=== PATIENT | female | born 1965 | race Caucasian/White ===

== ENCOUNTER 2018-07-28 12:49 | Emergency (ER) | payer MEDICAID ==
[2018-07-28] MEDS ORDERED: ONDANSETRON DISINTEGRATING 4 MG TAB PO ONE (13:27)
[2018-07-28] MEDS ORDERED: ONDANSETRON DISINTEGRATING 4 MG TAB ONE (13:27)
[2018-07-28] MEDS ORDERED: METOCLOPRAMIDE 10 MG/2 ML VIAL IVP ONE (14:11)
[2018-07-28] MEDS ORDERED: NS 1,000 ML IV ONE (14:11)
--- NOTE | 2018-07-28 14:15 | EDPHY ---
H & P Stated Complaint: N/V L upper abd pain x3 days, hx pancreatitis - Personal History LMP (Females 10-55): 22-28 Days Ago Current Tetanus Diphtheria and Acellular Pertussis (TDAP): No - Medical/Surgical History Hx Asthma: No Hx Chronic Respiratory Disease: No Hx Diabetes: No Hx Cardiac Disease: No Hx Renal Disease: No Hx Cirrhosis: No Hx Alcoholism: No Hx HIV/AIDS: No Hx Splenectomy or Spleen Trauma: No Other PMH: pancreatitis, mood disorder - Social History Smoking Status: Light smoker Time Seen by Provider: 07/28/18 14:03 HPI/ROS: CHIEF COMPLAINT: Epigastric pain nausea vomiting HISTORY OF PRESENT ILLNESS: 52-year-old female recently moved to this area from [place], [place], history of pancreatitis 1 year ago secondary to alcohol abuse and triglyceridemia, started drinking alcohol few days ago, is complaining of epigastric pain, nausea, vomiting for the past 3 days. No hematemesis. No melena hematochezia. No flu-like symptoms. No back or flank pain. No urinary abnormality. PRIMARY CARE PROVIDER: None locally REVIEW OF SYSTEMS: 10 systems reviewed and negative with the exception of the elements mentioned in the history of present illness PAST MEDICAL & SURGICAL HISTORY: C diff colitis history. Cutaneous MRSA history. Alcohol-induced pancreatitis. SOCIAL HISTORY: Positive for recent alcohol use PHYSICAL EXAM (Prior to examination, patient consented to physical exam, hands were washed and my usual and customary physical exam procedures followed) 1) GENERAL: Well-developed, well-nourished, alert and oriented. Appears to be in no acute distress. 2) HEAD: Normocephalic, atraumatic 3) HEENT: Pupils equal, round, reactive to light bilaterally. Sclera anicteric. Nasopharynx, oropharynx, clear, no lesions. Dry Mucous membranes. 4) NECK: Full range of motion, no meningeal signs. 5) LUNGS: Clear auscultation bilaterally, no wheezes, no rhonchi, no retractions. 6) HEART: Regular rate and rhythm, no murmur, no heave, no gallop. 7) ABDOMEN: No guarding, tender to palpation epigastrium negative McBurney's, negative Thomas's, negative Rovsing's, negative peritoneal sign, 8) MUSCULOSKELETAL: Moving all extremities, no focal areas of tenderness, no obvious trauma. No peripheral edema or discoloration. 9) BACK: No CVA tenderness, no midline vertebral tenderness, no fluctuance, no step-off, no obvious trauma, no visual or palpable abnormality. 10) SKIN: No rash, no petechiae. 11) Psychiatric: Patient is oriented X 3, there is no agitation. DIFFERENTIAL DIAGNOSIS: In no particular order, including but not limited to biliary colic, cholecystitis, peptic ulcer disease, pancreatitis, and gastroenteritis. This is a partial list of diagnoses considered. These considerations are based on history, physical exam, past history and reassessment. (Logan Vázquez) Constitutional: Initial Vital Signs Temperature (C) 36.7 C 07/28/18 12:51 Heart Rate 94 07/28/18 12:51 Respiratory Rate 16 07/28/18 12:51 Blood Pressure 141/114 H 07/28/18 12:51 O2 Sat (%) 96 07/28/18 12:51 O2 Delivery Mode Room Air Allergies/Adverse Reactions: No Known Allergies Allergy (Unverified 07/28/18 12:53) Home Medications: Medication Instructions Recorded Lamictal 07/28/18 Ondansetron Odt [Zofran Odt] 4 mg PO Q4PRN PRN #10 tab 07/28/18 Pantoprazole Sodium [Protonix 40mg 40 mg PO DAILY #30 tab 07/28/18 (RX)] SUBOXONE 8mg/2mg 07/28/18 Medical Decision Making ED Course/Re-evaluation: 2:15 p.m.: Will obtain diagnostic studies. Will administer IV fluids. I saw this patient independently based on established practice protocols. Care of patient under supervision of secondary supervising physician Dr Bean . 3:20 p.m.: Re-evaluation, she is feeling improvement. Discussed her laboratory results including normal lipase. Re-examined her abdomen which is soft no guarding no rebound. Think that acute surgical abdominal pathology less than likely, doubt acute pancreatitis, doubt acute cholecystitis. I did recommend she stop drinking alcohol. We discussed possibility of peptic ulcer disease. I have recommend she establish primary care. I have started her on proton pump inhibitor. This time I do not think that laboratory studies are indicated. She feels comfortable being discharged. She notes prior history of C diff colitis 18 months ago which was treated and has been asymptomatic since. She provided a stool sample in the ER however in absence of diarrhea I do not think that testing for C diff or other organism is definitively indicated at this time. My usual and customary discharge precautions and instructions provided (Logan Vázquez) I did not see this patient while she was in the emergency department. However her care was discussed with the PA while the patient was in the department. I agree with treatment plan and management (Asael Bean) - Data Points Laboratory Results: Laboratory Results 07/28/18 14:20 07/28/18 14:20 07/28/18 07/28/18 07/28/18 14:20 14:20 14:20 WBC 6.95 10^3/uL 10^3/uL (3.80-9.50) RBC 5.08 10^6/uL 10^6/uL (4.18-5.33) Hgb 14.9 g/dL g/dL (12.6-16.3) Hct 43.3 % % (38.0-47.0) MCV 85.2 fL fL (81.5-99.8) MCH 29.3 pg pg (27.9-34.1) MCHC 34.4 g/dL g/dL (32.4-36.7) RDW 13.5 % % (11.5-15.2) Plt Count 149 10^3/uL L 10^3/uL (150-400) MPV 10.7 fL fL (8.7-11.7) Neut % (Auto) 67.6 % % (39.3-74.2) Lymph % (Auto) 25.2 % % (15.0-45.0) [place] % (Auto) 5.5 % % (4.5-13.0) Eos % (Auto) 0.9 % % (0.6-7.6) Baso % (Auto) 0.7 % % (0.3-1.7) Nucleat RBC Rel Count 0.0 % % (0.0-0.2) Absolute Neuts (auto) 4.70 10^3/uL 10^3/uL (1.70-6.50) Absolute Lymphs (auto) 1.75 10^3/uL 10^3/uL (1.00-3.00) Absolute Monos (auto) 0.38 10^3/uL 10^3/uL (0.30-0.80) Absolute Eos (auto) 0.06 10^3/uL 10^3/uL (0.03-0.40) Absolute Basos (auto) 0.05 10^3/uL 10^3/uL (0.02-0.10) Absolute Nucleated RBC 0.00 10^3/uL 10^3/uL (0-0.01) Immature Gran % 0.1 % % (0.0-1.1) Immature Gran # 0.01 10^3/uL 10^3/uL (0.00-0.10) Sodium 137 mEq/L mEq/L (135-145) Potassium 4.1 mEq/L mEq/L (3.3-5.0) Chloride 104 mEq/L mEq/L (97-110) Carbon Dioxide 20 mEq/l L mEq/l (22-31) Anion Gap 13 mEq/L mEq/L (8-16) BUN 18 mg/dL mg/dL (7-23) Creatinine 0.5 mg/dL L mg/dL (0.6-1.0) Estimated GFR > 60 Glucose 108 mg/dL H mg/dL (70-100) Calcium 9.6 mg/dL mg/dL (8.5-10.4) Total Bilirubin 0.7 mg/dL mg/dL (0.1-1.4) Conjugated Bilirubin 0.2 mg/dL mg/dL (0.0-0.5) Unconjugated Bilirubin 0.5 mg/dL mg/dL (0.0-1.1) AST 29 IU/L IU/L (14-46) ALT 21 IU/L IU/L (9-52) Alkaline Phosphatase 90 IU/L IU/L (38-126) Total Protein 7.9 g/dL g/dL (6.3-8.2) Albumin 4.2 g/dL g/dL (3.5-5.0) Lipase 64 IU/L IU/L (23-300) Beta HCG, Qual NEGATIVE Medications Given: Discontinued Medications Al Hydroxide/Mg Hydroxide (Maalox Susp) 30 ml PO ONCE ONE Stop: 07/28/18 14:59 Last Admin: 07/28/18 15:08 Dose: 30 ml Hyoscyamine Sulfate (Levsin, Hyomax-Sl) 0.25 mg PO ONCE ONE Stop: 07/28/18 14:59 Last Admin: 07/28/18 15:08 Dose: 0.25 mg Sodium Chloride (Ns) 1,000 mls @ 0 mls/hr IV ONCE ONE PRN Reason: Wide Open Stop: 07/28/18 14:12 Last Admin: 07/28/18 14:22 Dose: 1,000 mls Lidocaine (Lidocaine 2% Viscous) 15 ml PO ONCE ONE Stop: 07/28/18 14:59 Last Admin: 07/28/18 15:08 Dose: 15 ml Metoclopramide HCl (Reglan Injection) 10 mg IVP EDNOW ONE Stop: 07/28/18 14:12 Last Admin: 07/28/18 14:22 Dose: 10 mg Ondansetron HCl (Zofran Odt) 4 mg PO EDNOW ONE Stop: 07/28/18 13:28 Last Admin: 07/28/18 13:28 Dose: 4 mg Departure - Departure Disposition: Home, Routine, Self-Care Clinical Impression: Nausea & vomiting Qualifiers: Vomiting type: unspecified Vomiting Intractability: non-intractable Qualified Code(s): R11.2 - Nausea with vomiting, unspecified Condition: Good Instructions: Acute Nausea and Vomiting (ED) Additional Instructions: Seek immediate medical attention if you develop new or worsening symptoms, if you develop fevers, chills, inability to tolerate oral intake or any other symptoms that concerns you. Please do not drink alcohol Referrals: [facility],. [Clinic] - 2-3 days, call for appt. Prescriptions: Ondansetron Odt [Zofran Odt] 4 mg PO Q4PRN PRN #10 tab PRN Reason: Nausea Pantoprazole Sodium [Protonix 40mg (RX)] 40 mg PO DAILY #30 tab
[2018-07-28 14:27] LABS: PLATELET COUNT 149 10^3/uL (150-400)
[2018-07-28] MEDS ORDERED: MAG HYDROX/AL HYDROX/SIMETH 30 ML UDCUP PO ONE (14:58)
[2018-07-28] MEDS ORDERED: LIDOCAINE 2% VISCOUS 15 ML UDCUP PO ONE (14:58)
[2018-07-28] MEDS ORDERED: HYOSCYAMINE SULFATE 0.125 MG TAB PO ONE (14:58)
[2018-07-28 15:37] VITALS: BP 132/78
== END 2018-07-28 15:36 | disposition home or self-care (01) ==
DX: R10.12 Left upper quadrant pain (principal); R11.2 Nausea with vomiting, unspecified; E86.9 Volume depletion, unspecified; Z87.19 Personal history of other diseases of the digestive system; F10.10 Alcohol abuse, uncomplicated
CPT/HCPCS: 96374; J2765

== ENCOUNTER 2018-10-19 10:50 | Emergency (ER) | payer MEDICAID ==
--- NOTE | 2018-10-19 11:26 | EDPHY ---
H & P Stated Complaint: detox, abd pain Time Seen by Provider: 10/19/18 11:26 HPI/ROS: CHIEF COMPLAINT: Abdominal pain, vomiting HISTORY OF PRESENT ILLNESS: The patient presents the ED with complaints of increasing abdominal pain and vomiting. The patient has been drinking alcohol pretty heavily over the past week. She does have a history of alcoholic pancreatitis. She reports she has been having chronic diarrhea since stopping narcotic medications 10 weeks ago. The patient reports she recently started taking Wellbutrin. She recently relocated to [place]. She has yet to establish primary care. The patient does complain of moderate to severe mid abdominal pain. She denies any additional acute complaints. REVIEW OF SYSTEMS: A comprehensive 10 point review of systems is otherwise negative aside from elements mentioned in the history of present illness. Source: Patient Exam Limitations: No limitations - Personal History Current Tetanus/Diphtheria Vaccine: Unsure Current Tetanus Diphtheria and Acellular Pertussis (TDAP): Unsure - Medical/Surgical History Hx Asthma: No Hx Chronic Respiratory Disease: No Hx Diabetes: No Hx Cardiac Disease: No Hx Renal Disease: No Hx Cirrhosis: No Hx Alcoholism: No Hx HIV/AIDS: No Hx Splenectomy or Spleen Trauma: No Other PMH: pancreatitis, mood disorder, opiate dependency - Social History Smoking Status: Current every day smoker - Physical Exam Exam: General Appearance: Alert, no distress, mild discomfort Eyes: Pupils equal and round no pallor or injection ENT, Mouth: Mucous membranes moist Respiratory: There are no retractions, lungs are clear to auscultation Cardiovascular: Slight tachycardia Gastrointestinal: Epigastric tenderness to palpation Neurological: 5/5 strength all 4 extremities Skin: Warm and dry, no rashes Musculoskeletal: Neck is supple nontender Extremities: symmetrical, full range of motion, no edema or asymmetric calf pain or swelling Psychiatric: Patient is oriented X 3, there is no agitation Constitutional: Initial Vital Signs Temperature (C) 36.8 C 10/19/18 10:54 Heart Rate 107 H 10/19/18 10:54 Respiratory Rate 16 10/19/18 10:54 Blood Pressure 142/129 H 10/19/18 10:54 O2 Sat (%) 97 10/19/18 10:54 O2 Delivery Mode Room Air Allergies/Adverse Reactions: No Known Allergies Allergy (Unverified 10/19/18 10:54) Medical Decision Making ED Course/Re-evaluation: Patient presents to the ED with vomiting in the setting of mild alcohol withdrawal. The patient is concerned about the possibility of recurrent pancreatitis. The patient's physical examination demonstrated only minimal epigastric tenderness to palpation. The patient had an IV established. She received a mg of Ativan and Zofran. Laboratory studies demonstrate no evidence of pancreatitis. I re-evaluated the patient. She has benign abdominal examination. The patient was [facility] for [facility] with alcohol withdrawal however she prefers to go home. The patient was given follow up with primary care regarding her chronic medical issues. She is discharged home with customary aftercare instructions and return precautions. Differential Diagnosis: Differential diagnosis considered includes vomiting, pancreatitis, dehydration, metabolic derangement, alcohol dependence, alcohol withdrawal - Data Points Laboratory Results: Laboratory Results 10/19/18 11:22 10/19/18 11:10/19/18 10/19/18 11:22 11:22 WBC 5.62 10^3/uL 10^3/uL (3.80-9.50) RBC 4.81 10^6/uL 10^6/uL (4.18-5.33) Hgb 15.0 g/dL g/dL (12.6-16.3) Hct 42.1 % % (38.0-47.0) MCV 87.5 fL fL (81.5-99.8) MCH 31.2 pg pg (27.9-34.1) MCHC 35.6 g/dL g/dL (32.4-36.7) RDW 14.3 % % (11.5-15.2) Plt Count 171 10^3/uL 10^3/uL (150-400) MPV 10.5 fL fL (8.7-11.7) Neut % (Auto) 53.2 % % (39.3-74.2) Lymph % (Auto) 39.7 % % (15.0-45.0) [place] % (Auto) 5.3 % % (4.5-13.0) Eos % (Auto) 0.5 % L % (0.6-7.6) Baso % (Auto) 1.1 % % (0.3-1.7) Nucleat RBC Rel Count 0.0 % % (0.0-0.2) Absolute Neuts (auto) 2.99 10^3/uL 10^3/uL (1.70-6.50) Absolute Lymphs (auto) 2.23 10^3/uL 10^3/uL (1.00-3.00) Absolute Monos (auto) 0.30 10^3/uL 10^3/uL (0.30-0.80) Absolute Eos (auto) 0.03 10^3/uL 10^3/uL (0.03-0.40) Absolute Basos (auto) 0.06 10^3/uL 10^3/uL (0.02-0.10) Absolute Nucleated RBC 0.00 10^3/uL 10^3/uL (0-0.01) Immature Gran % 0.2 % % (0.0-1.1) Immature Gran # 0.01 10^3/uL 10^3/uL (0.00-0.10) Sodium 139 mEq/L mEq/L (135-145) Potassium 5.1 mEq/L mEq/L (3.5-5.2) Chloride 108 mEq/L mEq/L (97-110) Carbon Dioxide 14 mEq/l L mEq/l (22-31) Anion Gap 17 mEq/L H mEq/L (6-14) BUN 15 mg/dL mg/dL (7-23) Creatinine 0.6 mg/dL mg/dL (0.6-1.0) Estimated GFR > 60 Glucose 98 mg/dL mg/dL (70-100) Calcium 8.4 mg/dL L mg/dL (8.5-10.4) Total Bilirubin 1.6 mg/dL H mg/dL (0.1-1.4) Conjugated Bilirubin 0.9 mg/dL H mg/dL (0.0-0.5) Unconjugated Bilirubin 0.7 mg/dL mg/dL (0.0-1.1) Icterus Index 6 AST 53 IU/L H IU/L (14-46) ALT < 6 IU/L L IU/L (9-52) Alkaline Phosphatase 80 IU/L IU/L (38-126) Total Protein 8.0 g/dL g/dL (6.3-8.2) Albumin 3.9 g/dL g/dL (3.5-5.0) Lipase 47 IU/L IU/L (23-300) Specimen Hemolysis 270 Medications Given: Discontinued Medications Sodium Chloride (Ns) 1,000 mls @ 0 mls/hr IV EDNOW ONE; Wide Open PRN Reason: Protocol Stop: 10/19/18 11:28 Last Admin: 10/19/18 11:31 Dose: 1,000 mls Lorazepam (Ativan Injection) 1 mg IVP EDNOW ONE Stop: 10/19/18 11:30 Last Admin: 10/19/18 11:35 Dose: 1 mg Ondansetron HCl (Zofran) 4 mg IVP EDNOW ONE Stop: 10/19/18 11:29 Last Admin: 10/19/18 11:35 Dose: 4 mg Departure - Departure Disposition: Home, Routine, Self-Care Clinical Impression: Alcohol withdrawal Condition: Good Instructions: Alcohol Withdrawal (ED) Additional Instructions: 1. You have been given the number for the [facility] if you desire assistance with your alcohol and narcotic dependence. 2. [facility]. 3. Please return to the ED for severe abdominal pain, vomiting or other concerns. Referrals: [facility],. [Clinic] - As per Instructions
[2018-10-19] MEDS: NS 1,000 ML IV ONE (11:31)
[2018-10-19 11:34] LABS: PLATELET COUNT 171 10^3/uL (150-400)
[2018-10-19] MEDS: LORazepam 2 MG/ML INJ IVP ONE (11:35)
[2018-10-19] MEDS: ONDANSETRON 4 MG/2 ML VIAL IVP ONE (11:35)
[2018-10-19 14:24] VITALS: BP 156/96
== END 2018-10-19 14:23 | disposition home or self-care (01) ==
DX: F10.230 Alcohol dependence with withdrawal, uncomplicated (principal); E86.9 Volume depletion, unspecified; F11.20 Opioid dependence, uncomplicated; F17.200 Nicotine dependence, unspecified, uncomplicated; Z87.19 Personal history of other diseases of the digestive system
CPT/HCPCS: 96374; J2060; J2405

== ENCOUNTER 2018-11-28 11:57 | Emergency (ER) | payer MEDICAID ==
[2018-11-28] MEDS ORDERED: NS 1,000 ML IV ONE ×3 (12:45→14:32)
[2018-11-28] MEDS ORDERED: LORazepam 2 MG/ML INJ IVP ONE (12:46)
--- NOTE | 2018-11-28 12:46 | EDPHY ---
H & P Time Seen by Provider: 11/28/18 12:34 HPI/ROS: CHIEF COMPLAINT: abdominal pain HISTORY OF PRESENT ILLNESS: Patient has a history previously of multiple episodes of pancreatitis, last was hospitalized 2 years ago. She did have laparoscopy for diagnosis of a pseudocyst at 1 point. She has been drinking lasts and has not been hospitalized for 2 years. She said chronic diarrhea after quitting opioids 4 months ago. Over the last 5 days she has had no diarrhea, worsening bloating and abdominal discomfort, right-sided pain for the last 1 day. No nausea vomiting fevers or chills. Not better worse with anything. Has decreased appetite associated and decreased oral intake. REVIEW OF SYSTEMS: Eye: no change in vision ENT: no sore throat Cardiac: no chest pain or syncope Pulmonary: no cough or SOB Abdomen: HPI Musculoskeletal: no back pain Skin: no rash Neuro: no headache Constitutional: no fever : no urinary symptoms A comprehensive 10 point review of systems is otherwise negative aside from elements mentioned in the history of present illness. PAST MEDICAL HISTORY: Includes pancreatitis, mood disorder Social history: Alcohol last night, also using Kratom General Appearance: Alert and conversant, cooperative. Eyes: No scleral icterus. ENT, Mouth: Dry mucous membranes Respiratory: Normal respiratory effort, breath sounds equal, lungs are clear to auscultation. Cardiovascular: Regular rate and rhythm. Gastrointestinal: Right-sided abdominal tenderness, negative Thomas sign, no rebound or guarding. Neurological: Alert, face symmetric, normal motor and sensory in extremities. Skin: Warm and dry, no rashes. Musculoskeletal: No peripheral edema. Psychiatric: Not agitated. Emergency Department course/MDM: Patient specifically does not want opioids. Discussed and consented IV hydration, CT scan abdomen and pelvis, lorazepam 0.5 mg IV, Toradol if creatinine is normal. 1420: CT scan per [facility] shows duodenitis, normal appendix, no bowel obstruction, otherwise negative. 1430: discussed with patient results, she will take her home Zantac. Diagnosis of duodenitis discussed. She states she is comfortable being discharged with treatment with H2 portillo and outpatient referral. Smoking Status: Former smoker Constitutional: Initial Vital Signs Temperature (C) 36.5 C 11/28/18 12:07 Heart Rate 87 11/28/18 12:07 Respiratory Rate 16 11/28/18 12:07 Blood Pressure 153/104 H 11/28/18 12:07 O2 Sat (%) 98 11/28/18 12:07 O2 Delivery Mode Room Air Allergies/Adverse Reactions: No Known Allergies Allergy (Unverified 11/28/18 12:07) Home Medications: Medication Instructions Recorded Bupropion HBr 11/28/18 Clonidine 11/28/18 Medical Decision Making - Diagnostics Imaging Results: Imaging Impressions Abdomen CT 11/28/18 13:34 Impression: 1. 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 2. Previous distal pancreatectomy without acute pancreatitis. 3. Thickening of the duodenum suggesting duodenitis. Consider follow up upper endoscopy. 4. No appendicitis, bowel obstruction, or pneumoperitoneum. 5. Degenerative lumbar spine. Findings and recommendations discussed with Emergency Department physician, Zachary Cabello, at 1410 hours, 11/28/2018. Final report concurs with initial preliminary interpretation. Imaging: Discussed imaging studies w/ shovel logger Radiologist Differential Diagnosis: Differential considered including but not limited to bowel obstruction, appendicitis, cholecystitis, pancreatitis, volvulus or perforation - Data Points Laboratory Results: Laboratory Results 11/28/18 12:30 11/28/18 12:30 11/28/18 11/28/18 11/28/18 13:00 12:30 12:30 WBC RBC Hgb Hct MCV MCH MCHC RDW Plt Count MPV Neut % (Auto) Lymph % (Auto) [place] % (Auto) Eos % (Auto) Baso % (Auto) Nucleat RBC Rel Count Absolute Neuts (auto) Absolute Lymphs (auto) Absolute Monos (auto) Absolute Eos (auto) Absolute Basos (auto) Absolute Nucleated RBC Immature Gran % Immature Gran # Sodium 132 mEq/L L mEq/L (135-145) Potassium 4.1 mEq/L mEq/L (3.5-5.2) Chloride 106 mEq/L mEq/L (97-110) Carbon Dioxide 17 mEq/l L mEq/l (22-31) Anion Gap 9 mEq/L mEq/L (6-14) BUN 13 mg/dL mg/dL (7-23) Creatinine 0.5 mg/dL L mg/dL (0.6-1.0) Estimated GFR > 60 Glucose 91 mg/dL mg/dL (70-100) Calcium 8.3 mg/dL L mg/dL (8.5-10.4) Total Bilirubin 0.7 mg/dL mg/dL (0.1-1.4) Conjugated Bilirubin 0.5 mg/dL mg/dL (0.0-0.5) Unconjugated Bilirubin 0.2 mg/dL mg/dL (0.0-1.1) AST 29 IU/L IU/L (14-46) ALT 14 IU/L IU/L (9-52) Alkaline Phosphatase 84 IU/L IU/L (38-126) Total Protein 7.0 g/dL g/dL (6.3-8.2) Albumin 3.5 g/dL g/dL (3.5-5.0) Lipase 69 IU/L IU/L (23-300) Beta HCG, Qual NEGATIVE Urine Color YELLOW Urine Appearance CLEAR Urine pH 6.0 (5.0-7.5) Ur Specific [place] 1.013 (1.002-1.030) Urine Protein NEGATIVE (NEGATIVE) Urine Ketones TRACE H (NEGATIVE) Urine Blood NEGATIVE (NEGATIVE) Urine Nitrate NEGATIVE (NEGATIVE) Urine Bilirubin NEGATIVE (NEGATIVE) Urine Urobilinogen NEGATIVE EU EU (0.2-1.0) Ur Leukocyte Esterase NEGATIVE (NEGATIVE) Urine Glucose NEGATIVE (NEGATIVE) 11/28/18 12:30 WBC 5.90 10^3/uL 10^3/uL (3.80-9.50) RBC 4.03 10^6/uL L 10^6/uL (4.18-5.33) Hgb 13.3 g/dL g/dL (12.6-16.3) Hct 37.3 % L % (38.0-47.0) MCV 92.6 fL fL (81.5-99.8) MCH 33.0 pg pg (27.9-34.1) MCHC 35.7 g/dL g/dL (32.4-36.7) RDW 14.7 % % (11.5-15.2) Plt Count 142 10^3/uL L 10^3/uL (150-400) MPV 10.6 fL fL (8.7-11.7) Neut % (Auto) 58.2 % % (39.3-74.2) Lymph % (Auto) 32.4 % % (15.0-45.0) [place] % (Auto) 6.1 % % (4.5-13.0) Eos % (Auto) 1.9 % % (0.6-7.6) Baso % (Auto) 1.2 % % (0.3-1.7) Nucleat RBC Rel Count 0.0 % % (0.0-0.2) Absolute Neuts (auto) 3.44 10^3/uL 10^3/uL (1.70-6.50) Absolute Lymphs (auto) 1.91 10^3/uL 10^3/uL (1.00-3.00) Absolute Monos (auto) 0.36 10^3/uL 10^3/uL (0.30-0.80) Absolute Eos (auto) 0.11 10^3/uL 10^3/uL (0.03-0.40) Absolute Basos (auto) 0.07 10^3/uL 10^3/uL (0.02-0.10) Absolute Nucleated RBC 0.00 10^3/uL 10^3/uL (0-0.01) Immature Gran % 0.2 % % (0.0-1.1) Immature Gran # 0.01 10^3/uL 10^3/uL (0.00-0.10) Sodium Potassium Chloride Carbon Dioxide Anion Gap BUN Creatinine Estimated GFR Glucose Calcium Total Bilirubin Conjugated Bilirubin Unconjugated Bilirubin AST ALT Alkaline Phosphatase Total Protein Albumin Lipase Beta HCG, Qual Urine Color Urine Appearance Urine pH Ur Specific [place] Urine Protein Urine Ketones Urine Blood Urine Nitrate Urine Bilirubin Urine Urobilinogen Ur Leukocyte Esterase Urine Glucose Medications Given: Discontinued Medications Sodium Chloride (Ns) 1,000 mls @ 0 mls/hr IV EDNOW ONE; Wide Open PRN Reason: Protocol Stop: 11/28/18 12:46 Last Admin: 11/28/18 12:57 Dose: 1,000 mls Sodium Chloride (Ns) 1,000 mls @ 0 mls/hr IV EDNOW ONE; Wide Open PRN Reason: Protocol Stop: 11/28/18 13:16 Last Admin: 11/28/18 13:19 Dose: 1,000 mls Sodium Chloride (Ns) 1,000 mls @ 0 mls/hr IV ONCE ONE PRN Reason: Wide Open Stop: 11/28/18 14:33 Last Admin: 11/28/18 14:34 Dose: 1,000 mls Ketorolac Tromethamine (Toradol) 15 mg IVP EDNOW ONE Stop: 11/28/18 13:16 Last Admin: 11/28/18 13:19 Dose: 15 mg Lorazepam (Ativan Injection) 0.5 mg IVP EDNOW ONE Stop: 11/28/18 12:47 Last Admin: 11/28/18 12:56 Dose: 0.5 mg Departure - Departure Disposition: Home, Routine, Self-Care Clinical Impression: Duodenitis Abdominal pain Qualifiers: Abdominal location: generalized Qualified Code(s): R10.84 - Generalized abdominal pain Condition: Good Instructions: Duodenitis (ED) Additional Instructions: reduce alcohol intake. Take your zantac as directed on package. Referrals: [facility],. [Clinic] - As per Instructions
[2018-11-28 12:57] LABS: PLATELET COUNT 142 10^3/uL (150-400)
[2018-11-28] MEDS ORDERED: KETOROLAC 30 MG/1 ML SDV IVP ONE (13:15)
[2018-11-28] MEDS ORDERED: IOHEXOL 350mgI/ML (OMNIPAQUE) 150 ML BTL IV ONE (13:40)
[2018-11-28 15:14] VITALS: BP 167/93
== END 2018-11-28 15:19 | disposition home or self-care (01) ==
DX: K29.80 Duodenitis without bleeding (principal); R10.84 Generalized abdominal pain; E86.9 Volume depletion, unspecified; Z87.891 Personal history of nicotine dependence
CPT/HCPCS: 96374; J1885; J2060; Q9967

== ENCOUNTER 2019-01-24 11:08 | Inpatient (IN) | payer MEDICAID ==
--- NOTE | 2019-01-24 11:31 | EDPHY ---
H & P Stated Complaint: etoh/SI Source: Patient, Family (Life partner) Exam Limitations: Intoxication - Personal History LMP (Females 10-55): 15-21 Days Ago Current Tetanus Diphtheria and Acellular Pertussis (TDAP): Unsure - Medical/Surgical History Hx Asthma: No Hx Chronic Respiratory Disease: No Hx Diabetes: No Hx Cardiac Disease: No Hx Renal Disease: No Hx Cirrhosis: No Hx Alcoholism: Yes Hx HIV/AIDS: No Hx Splenectomy or Spleen Trauma: No Other PMH: pancreatitis, mood disorder, opiate dependency - Social History Smoking Status: Former smoker Time Seen by Provider: 01/24/19 11:31 HPI/ROS: HPI: This is a 53-year-old female who presents with Chief Complaint: Alcoholism Location: psych Quality: Alcoholism, feelings of hopelessness Duration: Months Signs and Symptoms: no fever, no nausea, no vomiting, no hematemesis, no blood in stool, no abdominal bloating, no diarrhea, no back pain, no urinary symptoms , no vaginal bleeding/discharge, no indigestion, no chest pain, no shortness of breath Timing: Acute on chronic Severity: Moderate to severe Context: Patient has a history of alcohol abuse, alcoholic pancreatitis, mood disorder, opiate dependency, presents voluntarily accompanied by life partner with drinking vodka daily and feelings of hopelessness and guilt. Patient is requesting resources for alcohol detox and rehab program. Patient reports that when she becomes more sober she wants to live life and she is extremely happy with her life. She reports that she moved to the area 3 years ago and is in love with her girlfriend. She wants to be around to spend time with her children. She stopped Suboxone in August and started taking Kratom from [place]. Denies history of seizures/delirium tremens. Modifying Factors: None Comment: ROS: A comprehensive 10 system review of systems is otherwise negative aside from elements mentioned in the history of present illness. MEDICAL/SURGICAL/SOCIAL HISTORY: Medical history: Alcohol abuse, pancreatitis, mood disorder, opiate dependency Surgical history: Denies Social history: Unemployed. Former smoker. Family history noncontributory. CONSTITUTIONAL: Tearful, hyperventilating at times, intoxicated, middle-aged white female, awake and alert, no obvious distress HEENT: Atraumatic and normocephalic, PERRL, EOMI. Nares patent; no rhinorrhea; no nasal mucosal edema. Tympanic membranes clear. Oropharynx clear, no exudate and moist pink mucosa. Airway patent. No lymphadenopathy. No meningismus. Cardiovascular: Normal S1/S2, tachycardia, regular rhythm, without murmur rub or gallop. PULMONARY/CHEST: Symmetrical and nontender. Clear to auscultation bilaterally. Good air movement. No accessory muscle usage. Tachypnea. ABDOMEN: Soft, nondistended, nontender, no rebound, no guarding, no peritoneal signs, no masses or organomegaly. No CVAT. EXTREMITIES: 2/2 pulses, strength 5/5, no deformities, no clubbing, no cyanosis or edema. NEUROLOGICAL: no focal neuro deficits. GCS 15. Slurring of words. SKIN: Warm and dry, no erythema. no rash. Good capillary refill. PSYCH: Good eye contact, no flight of ideas, relative organized thought process , fair insight and judgment, no auditory hallucinations, no visual hallucinations, no suicidal ideation with a plan, no homicidal ideation, no paranoia (Joaquín,Terra) Constitutional: Initial Vital Signs Temperature (C) 36.8 C 01/24/19 11:23 Heart Rate 116 H 01/24/19 11:23 Respiratory Rate 18 01/24/19 11:23 Blood Pressure 146/89 H 01/24/19 11:23 O2 Sat (%) 95 01/24/19 11:23 O2 Delivery Mode Room Air Allergies/Adverse Reactions: No Known Allergies Allergy (Verified 01/24/19 11:22) Home Medications: Medication Instructions Recorded clonIDINE [Catapres (*)] 0.1 mg PO HS 11/28/18 buPROPion XL [Wellbutrin Xl] 150 mg PO DAILY 01/24/19 Medical Decision Making ED Course/Re-evaluation: Vital signs reviewed and shows mild tachycardia upon arrival. Patietn crying and hyperventilating upon arrival to the Emergency room. Patient does not meet M1 hold criteria. Breathalyzer, and urine drug screen ordered Will place on [facility] with voluntary mental health evaluation and case management consult 1210: Breathalyzer [phone]: Notified by case management that patient is accepted at [facility] but they are requesting CBC, CMP, urinalysis, urine drug screen prior to transfer. 1334: Urinalysis shows trace ketones and 1+ blood but no brendan signs of infection. Urine drug screen negative. 1345: Labs reviewed and grossly unremarkable. Sodium 132, albumin 2.9, calcium 7.9. Potassium 3.2, CO2 8, anion gap 23, calcium 7.9; CO2 and anion gap her likely due to hyperventilation syndrome. 1 L normal saline ordered. repeat BMP after IVF. 1354: Notified by RN that patient is complaining of nausea. IV Zofran 4 mg given 1600: Notified By case management that [facility] has called and notified us that they have no bed availability today but they do have beds available tomorrow. Case management calling [facility] for bed availability. 1610: Called by lab that BMP remains the same abnormal values. After further questioning patient reports that she stop taking Suboxone Will give another 2 L normal saline and repeat BMP. No concern for ingestion of other toxic substances. Has not taken Suboxone since August and has been taking Kratom instead. Venous blood gas, acetaminophen, salicylate levels added to lab draw. acidosis could be related to thiamine deficiency vs. alcoholic ketoacidosis 1655: Regular diet tray ordered 1700: End of Shift. Signed over to Dr. Bean pending repeat labs after IVF hydration, further laboratory studies and final disposition. This patient was seen under the supervision of my secondary supervising physician. I evaluated care for this patient with attending. (Reny Yanes) Care was signed out to me at 4:30 p.m.. I reviewed the patient's labs and see that she is quite acidotic. The sign out was that the patient is hyperventilating and that is the cause of her acidosis however the patient is slightly tachypneic but I think this is from medication ingestion. Patient tells me that she has been using a lot of ibuprofen for tooth pain. She is also been using Kratom that she buys over the Internet to help with opioid withdrawal. Review of Kratom on up-to-date does not show that there is significant acidosis associated with the multiple side effects of this drug Patient denies drinking other than ethanol. I discussed the case with Dr. Angel Luis arredondo at poison Control. She suggest possible for alcohol ketoacidosis. She suggest adding a beta hydroxybutyrate. She does not think acidosis is caused by the crate him. She also does not think and said use is the cause. Case # [id number] After 2 L of fluid the patient remains acidotic. Her beta hydroxybutyrate is elevated. The patient is given thiamin IV and started on D10 W for presumed alcoholic ketoacidosis (Asael Bean) Differential Diagnosis: Differential diagnosis includes but is not limited to major depression, anxiety disorder, schizophrenia, bipolar disorder, intoxicant use, suicidal ideation, psychosis, delmi. (Reny Yanes) - Data Points Laboratory Results: Laboratory Results 01/24/19 13:00 01/24/19 18:18 01/24/19 01/24/19 01/24/19 18:18 16:50 16:50 WBC RBC Hgb Hct MCV MCH MCHC RDW Plt Count MPV Neut % (Auto) Lymph % (Auto) [place] % (Auto) Eos % (Auto) Baso % (Auto) Nucleat RBC Rel Count Absolute Neuts (auto) Absolute Lymphs (auto) Absolute Monos (auto) Absolute Eos (auto) Absolute Basos (auto) Absolute Nucleated RBC Immature Gran % Immature Gran # Puncture Site NONE GIVEN Patient Temperature 37.0 DEGREES DEGREES VBG pH 7.39 (7.31-7.42) VBG HCO3 13 mEQ/L L mEQ/L (22-26) VBG Total CO2 14 mEq/L L mEq/L (21-27) VBG O2 Saturation TNP VBG Base Excess TNP Mixed VBG pCO2 23 mmHg L mmHg (40-44) Mixed VBG pO2 126 mmHG H mmHG (35-40) Turbidity Sodium 131 mEq/L L mEq/L (135-145) Potassium 3.9 mEq/L mEq/L (3.5-5.2) Chloride 105 mEq/L mEq/L (97-110) Carbon Dioxide 7 mEq/l L* mEq/l (22-31) Anion Gap 19 mEq/L H mEq/L (6-14) BUN 14 mg/dL mg/dL (7-23) Creatinine 0.7 mg/dL mg/dL (0.6-1.0) Estimated GFR > 60 Glucose 62 mg/dL L mg/dL (70-100) Calcium 6.7 mg/dL L mg/dL (8.5-10.4) Total Bilirubin AST ALT Alkaline Phosphatase Total Protein Albumin Lipase Beta-Hydroxybutyrate Urine Color Urine Appearance Urine pH Ur Specific [place] Urine Protein Urine Ketones Urine Blood Urine Nitrate Urine Bilirubin Urine Urobilinogen Ur Leukocyte Esterase Urine RBC Urine WBC Ur Epithelial Cells Hyaline Casts Urine Mucus Urine Glucose Urine Test Salicylates < 1.0 mg/dL L mg/dL (2.0-20.0) Urine Opiates Screen Acetaminophen < 10 mcg/mL L mcg/mL (10-30) Urine Barbiturates Ur Phencyclidine Scrn Ur Amphetamine Screen U Benzodiazepines Scrn Urine Cocaine Screen U Marijuana (THC) Screen Ethyl Alcohol 192 mg/dL H mg/dL (0-10) 01/24/19 01/24/19 01/24/19 15:10 15:10 13:07 WBC RBC Hgb Hct MCV MCH MCHC RDW Plt Count MPV Neut % (Auto) Lymph % (Auto) [place] % (Auto) Eos % (Auto) Baso % (Auto) Nucleat RBC Rel Count Absolute Neuts (auto) Absolute Lymphs (auto) Absolute Monos (auto) Absolute Eos (auto) Absolute Basos (auto) Absolute Nucleated RBC Immature Gran % Immature Gran # Puncture Site Patient Temperature VBG pH VBG HCO3 VBG Total CO2 VBG O2 Saturation VBG Base Excess Mixed VBG pCO2 Mixed VBG pO2 Turbidity 216 Sodium 133 mEq/L L mEq/L (135-145) Potassium 3.9 mEq/L mEq/L (3.5-5.2) Chloride 102 mEq/L mEq/L (97-110) Carbon Dioxide 8 mEq/l L* mEq/l (22-31) Anion Gap 23 mEq/L H mEq/L (6-14) BUN 17 mg/dL mg/dL (7-23) Creatinine 0.7 mg/dL mg/dL (0.6-1.0) Estimated GFR > 60 Glucose 63 mg/dL L mg/dL (70-100) Calcium 7.2 mg/dL L mg/dL (8.5-10.4) Total Bilirubin AST ALT Alkaline Phosphatase Total Protein Albumin Lipase Beta-Hydroxybutyrate 1.40 mmol/L H mmol/L (0.02-0.27) Urine Color Urine Appearance Urine pH Ur Specific [place] Urine Protein Urine Ketones Urine Blood Urine Nitrate Urine Bilirubin Urine Urobilinogen Ur Leukocyte Esterase Urine RBC Urine WBC Ur Epithelial Cells Hyaline Casts Urine Mucus Urine Glucose Urine Test NEGATIVE Salicylates Urine Opiates Screen Acetaminophen Urine Barbiturates Ur Phencyclidine Scrn Ur Amphetamine Screen U Benzodiazepines Scrn Urine Cocaine Screen U Marijuana (THC) Screen Ethyl Alcohol 01/24/19 01/24/19 01/24/19 13:00 13:00 13:00 WBC 5.82 10^3/uL 10^3/uL (3.80-9.50) RBC 4.46 10^6/uL 10^6/uL (4.18-5.33) Hgb 14.7 g/dL g/dL (12.6-16.3) Hct 40.5 % % (38.0-47.0) MCV 90.8 fL fL (81.5-99.8) MCH 33.0 pg pg (27.9-34.1) MCHC 36.3 g/dL g/dL (32.4-36.7) RDW 12.9 % % (11.5-15.2) Plt Count 212 10^3/uL 10^3/uL (150-400) MPV 10.5 fL fL (8.7-11.7) Neut % (Auto) 47.5 % % (39.3-74.2) Lymph % (Auto) 43.1 % % (15.0-45.0) [place] % (Auto) 6.4 % % (4.5-13.0) Eos % (Auto) 1.5 % % (0.6-7.6) Baso % (Auto) 1.2 % % (0.3-1.7) Nucleat RBC Rel Count 0.0 % % (0.0-0.2) Absolute Neuts (auto) 2.76 10^3/uL 10^3/uL (1.70-6.50) Absolute Lymphs (auto) 2.51 10^3/uL 10^3/uL (1.00-3.00) Absolute Monos (auto) 0.37 10^3/uL 10^3/uL (0.30-0.80) Absolute Eos (auto) 0.09 10^3/uL 10^3/uL (0.03-0.40) Absolute Basos (auto) 0.07 10^3/uL 10^3/uL (0.02-0.10) Absolute Nucleated RBC 0.00 10^3/uL 10^3/uL (0-0.01) Immature Gran % 0.3 % % (0.0-1.1) Immature Gran # 0.02 10^3/uL 10^3/uL (0.00-0.10) Puncture Site Patient Temperature VBG pH VBG HCO3 VBG Total CO2 VBG O2 Saturation VBG Base Excess Mixed VBG pCO2 Mixed VBG pO2 Turbidity 213 Sodium 132 mEq/L L mEq/L (135-145) Potassium 4.4 mEq/L mEq/L (3.5-5.2) Chloride 101 mEq/L mEq/L (97-110) Carbon Dioxide 8 mEq/l L* mEq/l (22-31) Anion Gap 23 mEq/L H mEq/L (6-14) BUN 18 mg/dL mg/dL (7-23) Creatinine 0.8 mg/dL mg/dL (0.6-1.0) Estimated GFR > 60 Glucose 70 mg/dL mg/dL (70-100) Calcium 7.9 mg/dL L mg/dL (8.5-10.4) Total Bilirubin 0.9 mg/dL mg/dL (0.1-1.4) AST 56 IU/L H IU/L (14-46) ALT 7 IU/L L IU/L (9-52) Alkaline Phosphatase 107 IU/L IU/L (38-126) Total Protein 7.4 g/dL g/dL (6.3-8.2) Albumin 2.9 g/dL L g/dL (3.5-5.0) Lipase 139 IU/L IU/L (23-300) Beta-Hydroxybutyrate Urine Color YELLOW Urine Appearance HAZY Urine pH 5.0 (5.0-7.5) Ur Specific [place] 1.018 (1.002-1.030) Urine Protein 2+ H (NEGATIVE) Urine Ketones TRACE H (NEGATIVE) Urine Blood 1+ H (NEGATIVE) Urine Nitrate NEGATIVE (NEGATIVE) Urine Bilirubin NEGATIVE (NEGATIVE) Urine Urobilinogen NEGATIVE EU EU (0.2-1.0) Ur Leukocyte Esterase NEGATIVE (NEGATIVE) Urine RBC 1-3 /hpf /hpf (0-3) Urine WBC 1-3 /hpf /hpf (0-3) Ur Epithelial Cells TRACE /lpf /lpf (NONE-1+) Hyaline Casts 1-5 /lpf /lpf (0-1) Urine Mucus 2+ /lpf H /lpf (NONE-1+) Urine Glucose NEGATIVE (NEGATIVE) Urine Test Salicylates Urine Opiates Screen NEGATIVE (NEGATIVE) Acetaminophen Urine Barbiturates NEGATIVE (NEGATIVE) Ur Phencyclidine Scrn NEGATIVE (NEGATIVE) Ur Amphetamine Screen NEGATIVE (NEGATIVE) U Benzodiazepines Scrn NEGATIVE (NEGATIVE) Urine Cocaine Screen NEGATIVE (NEGATIVE) U Marijuana (THC) Screen NEGATIVE (NEGATIVE) Ethyl Alcohol Medications Given: Dextrose (D10w) 1,000 mls @ 50 mls/hr IV CONT ELLIS Stop: 07/23/19 18:29 Last Admin: 01/24/19 19:42 Dose: 1,000 mls Lorazepam (Ativan Injection) 0 mg IVP Q1H PRN; Protocol PRN Reason: Alcohol Withdrawal w/IV access Stop: 07/23/19 19:25 Last Admin: 01/24/19 21:14 Dose: 2 mg Nicotine (Nicoderm Cq) 14 mg TD DAILY ELLIS Stop: 07/23/19 19:29 Last Admin: 01/24/19 20:04 Dose: Not Given Discontinued Medications Al Hydroxide/Mg Hydroxide (Maalox Susp) 30 ml PO ONCE ONE Stop: 01/24/19 19:15 Last Admin: 01/24/19 19:21 Dose: 30 ml Famotidine (Pepcid) 20 mg PO EDNOW ONE Stop: 01/24/19 18:48 Last Admin: 01/24/19 19:21 Dose: 20 mg Sodium Chloride (Ns) 1,000 mls @ 0 mls/hr IV EDNOW ONE; Wide Open PRN Reason: Protocol Stop: 01/24/19 13:55 Last Admin: 01/24/19 14:03 Dose: 1,000 mls Sodium Chloride (Ns) 1,000 mls @ 0 mls/hr IV EDNOW ONE; Wide Open PRN Reason: Protocol Stop: 01/24/19 16:20 Last Admin: 01/24/19 16:55 Dose: 1,000 mls Sodium Chloride (Ns) 1,000 mls @ 0 mls/hr IV EDNOW ONE; Wide Open PRN Reason: Protocol Stop: 01/24/19 16:21 Last Admin: 01/24/19 16:56 Dose: 1,000 mls Thiamine HCl 100 mg/ Sodium (Chloride) 101 mls @ 202 mls/hr IV DAILY ELLIS Stop: 07/23/19 18:29 Last Admin: 01/24/19 19:48 Dose: Not Given Thiamine HCl 100 mg/ Sodium (Chloride) 101 mls @ 202 mls/hr IV EDNOW ONE Stop: 01/24/19 19:59 Last Admin: 01/24/19 19:42 Dose: 101 mls Lidocaine (Lidocaine 2% Viscous) 15 ml PO ONCE ONE Stop: 01/24/19 19:15 Last Admin: 01/24/19 19:21 Dose: 15 ml Ondansetron HCl (Zofran) 4 mg IVP EDNOW ONE Stop: 01/24/19 13:55 Last Admin: 01/24/19 14:03 Dose: 4 mg Ondansetron HCl (Zofran) 4 mg IVP EDNOW ONE Stop: 01/24/19 18:32 Last Admin: 01/24/19 18:31 Dose: 4 mg Departure - Departure Disposition: [facility] Acute Clinical Impression: Alcoholism /alcohol abuse, Hypoalbuminemia, Acidosis, Alcoholic ketoacidosis Condition: Fair
[2019-01-24] MEDS ORDERED: NS 1,000 ML IV ONE ×3 (13:54→16:20)
[2019-01-24] MEDS ORDERED: ONDANSETRON 4 MG/2 ML VIAL IVP ONE ×2 (13:54→18:31)
[2019-01-24 14:16] LABS: PLATELET COUNT 212 10^3/uL (150-400)
[2019-01-24] MEDS ORDERED: ONDANSETRON 4 MG/2 ML VIAL ONE (18:28)
[2019-01-24] MEDS ORDERED: THIAMINE HCL 100 MG in NS 100 ML IV SCH (18:30)
[2019-01-24] MEDS ORDERED: D10W 1,000 ML IV SCH (18:30)
[2019-01-24] MEDS ORDERED: FAMOTIDINE 20 MG TAB PO ONE (18:47)
--- NOTE | 2019-01-24 19:08 | ASMTCMCOM ---
CM Note CM Note Notes: See ED report for details regarding patient's presentation to the ED this morning. Chart reviewed, met with patient, and referral made to [facility] () detox in [place]. This CM spoke with Sasha at and confirmed that they had a Medicaid detox bed available, however, after gathering labs, and sending requested information, Marycarmen notified CM that they did not have a bed available. This CM spoke with Nahed (fish processing supervisor at ) to request improved communication with staff and asked that in the future they would contact CM if there is a change in their bed situation after we have requested a bed and are in the process of gathering their requested information. Nahed states that she will follow up and discuss this with staff. This CM then contacted Haim at [facility] and have sent referral for a Medicaid detox bed. Patient has been accepted to [facility] as of 173. Patient's METPC repeated at 1830 and remains with critical low CO2 and patient will be admitted for further evaluation (see ED report for details). This CM contacted kimberly at [facility] , ext [phone] and informed that patient will be admitted here overnight. Per Kimberly, CM may contact if/when patient is ready to discharge to detox and check their bed availability at that time CM to follow Date Signed: 01/24/2019 07:07 PM Electronically Signed By:Karen Parada RN
[2019-01-24] MEDS ORDERED: MAG HYDROX/AL HYDROX/SIMETH 30 ML UDCUP PO ONE (19:14)
[2019-01-24] MEDS ORDERED: LIDOCAINE 2% VISCOUS 15 ML UDCUP PO ONE (19:14)
[2019-01-24] MEDS ORDERED: ONDANSETRON 4 MG/2 ML VIAL IVP PRN (19:25)
[2019-01-24] MEDS ORDERED: ONDANSETRON DISINTEGRATING 4 MG TAB PO PRN (19:25)
[2019-01-24] MEDS ORDERED: FLUMAZENIL 0.5 MG/5 ML MDV IVP PRN (19:26)
[2019-01-24] MEDS ORDERED: THIAMINE HCL 100 MG in NS 100 ML IV ONE (19:30)
--- NOTE | 2019-01-24 20:00 | PDGENHP ---
History and Physical - Chief Complaint Alcohol Dependence - History of Present Illness Sasha Bowser is a 53 yo F with a PMHx of alcoholism, opoid abuse, tobacco abuse who presents to [facility] for alcohol dependence. She reports she has been binging on alcohol for the past few weeks drinking a pint to a 5th of vodka daily. She cannot recall if last drink was last evening or this morning. She curretnly denies chest pain, SOB, f/c, n/v, abdominal pain, dysuria. She denies any hx of withdrawal seizures. She reports that she would like resources for alcohol detox and rehab. She has detoxed from opioids in the past with Suboxone which she discontinued in August and takes Kratom from [place]. History Information - Allergies/Home Medication List Allergies/Adverse Reactions: No Known Allergies Allergy (Verified 01/24/19 11:22) Home Medications: clonIDINE [Catapres (*)] 0.1 mg PO HS 11/28/18 [Last Taken 01/21/19] buPROPion XL [Wellbutrin Xl] 150 mg PO DAILY 01/24/19 [Last Taken 01/22/19] I have personally reviewed and updated: family history, medical history, social history, surgical history - Past Medical History no pertinent PMH - Surgical History Reports: no pertinent surgical hx - Family History Positive for: non-pertinent - Social History Smoking Status: Former smoker Alcohol Use: Heavy Drug Use: None Review of Systems Review of Systems: ROS: 10pt was reviewed & negative except for what was stated in HPI & below Physical Exam Physical Exam: Temp Pulse Resp BP Pulse Ox 36.8 C 119 H 18 132/91 H 95 01/24/19 11:23 01/24/19 19:47 01/24/19 19:47 01/24/19 19:47 01/24/19 19:47 Constitutional: uncomfortable Eyes: PERRL Ears, Nose, Mouth, Throat: dry mucous membranes Cardiovascular: tachycardia Respiratory: no respiratory distress Gastrointestinal: soft, non-tender abdomen Skin: warm Musculoskeletal: full muscle strength Neurologic: AAOx3 Psychiatric: anxious Lab Data & Imaging Review 01/24/19 13:00 01/24/19 18:18 WBC 5.82 10^3/uL (3.80-9.50) 01/24/19 13:00 RBC 4.46 10^6/uL (4.18-5.33) 01/24/19 13:00 Hgb 14.7 g/dL (12.6-16.3) 01/24/19 13:00 Hct 40.5 % (38.0-47.0) 01/24/19 13:00 MCV 90.8 fL (81.5-99.8) 01/24/19 13:00 MCH 33.0 pg (27.9-34.1) 01/24/19 13:00 MCHC 36.3 g/dL (32.4-36.7) 01/24/19 13:00 RDW 12.9 % (11.5-15.2) 01/24/19 13:00 Plt Count 212 10^3/uL (150-400) 01/24/19 13:00 MPV 10.5 fL (8.7-11.7) 01/24/19 13:00 Neut % (Auto) 47.5 % (39.3-74.2) 01/24/19 13:00 Lymph % (Auto) 43.1 % (15.0-45.0) 01/24/19 13:00 [place] % (Auto) 6.4 % (4.5-13.0) 01/24/19 13:00 Eos % (Auto) 1.5 % (0.6-7.6) 01/24/19 13:00 Baso % (Auto) 1.2 % (0.3-1.7) 01/24/19 13:00 Nucleat RBC Rel Count 0.0 % (0.0-0.2) 01/24/19 13:00 Absolute Neuts (auto) 2.76 10^3/uL (1.70-6.50) 01/24/19 13:00 Absolute Lymphs (auto) 2.51 10^3/uL (1.00-3.00) 01/24/19 13:00 Absolute Monos (auto) 0.37 10^3/uL (0.30-0.80) 01/24/19 13:00 Absolute Eos (auto) 0.09 10^3/uL (0.03-0.40) 01/24/19 13:00 Absolute Basos (auto) 0.07 10^3/uL (0.02-0.10) 01/24/19 13:00 Absolute Nucleated RBC 0.00 10^3/uL (0-0.01) 01/24/19 13:00 Immature Gran % 0.3 % (0.0-1.1) 01/24/19 13:00 Immature Gran # 0.02 10^3/uL (0.00-0.10) 01/24/19 13:00 Puncture Site NONE GIVEN 01/24/19 16:50 Patient Temperature 37.0 DEGREES 01/24/19 16:50 VBG pH 7.39 (7.31-7.42) 01/24/19 16:50 VBG HCO3 13 mEQ/L (22-26) L 01/24/19 16:50 VBG Total CO2 14 mEq/L (21-27) L 01/24/19 16:50 VBG O2 Saturation TNP 01/24/19 16:50 VBG Base Excess TNP 01/24/19 16:50 Mixed VBG pCO2 23 mmHg (40-44) L 01/24/19 16:50 Mixed VBG pO2 126 mmHG (35-40) H 01/24/19 16:50 Turbidity 216 01/24/19 15:10 Sodium 131 mEq/L (135-145) L 01/24/19 18:18 Potassium 3.9 mEq/L (3.5-5.2) 01/24/19 18:18 Chloride 105 mEq/L (97-110) 01/24/19 18:18 Carbon Dioxide 7 mEq/l (22-31) L* 01/24/19 18:18 Anion Gap 19 mEq/L (6-14) H 01/24/19 18:18 BUN 14 mg/dL (7-23) 01/24/19 18:18 Creatinine 0.7 mg/dL (0.6-1.0) 01/24/19 18:18 Estimated GFR > 60 01/24/19 18:18 Glucose 62 mg/dL (70-100) L 01/24/19 18:18 Calcium 6.7 mg/dL (8.5-10.4) L 01/24/19 18:18 Total Bilirubin 0.9 mg/dL (0.1-1.4) 01/24/19 13:00 AST 56 IU/L (14-46) H 01/24/19 13:00 ALT 7 IU/L (9-52) L 01/24/19 13:00 Alkaline Phosphatase 107 IU/L (38-126) 01/24/19 13:00 Total Protein 7.4 g/dL (6.3-8.2) 01/24/19 13:00 Albumin 2.9 g/dL (3.5-5.0) L 01/24/19 13:00 Lipase 139 IU/L (23-300) 01/24/19 13:00 Beta-Hydroxybutyrate 1.40 mmol/L (0.02-0.27) H 01/24/19 15:10 Urine Color YELLOW 01/24/19 13:00 Urine Appearance HAZY 01/24/19 13:00 Urine pH 5.0 (5.0-7.5) 01/24/19 13:00 Ur Specific [place] 1.018 (1.002-1.030) 01/24/19 13:00 Urine Protein 2+ (NEGATIVE) H 01/24/19 13:00 Urine Ketones TRACE (NEGATIVE) H 01/24/19 13:00 Urine Blood 1+ (NEGATIVE) H 01/24/19 13:00 Urine Nitrate NEGATIVE (NEGATIVE) 01/24/19 13:00 Urine Bilirubin NEGATIVE (NEGATIVE) 01/24/19 13:00 Urine Urobilinogen NEGATIVE EU (0.2-1.0) 01/24/19 13:00 Ur Leukocyte Esterase NEGATIVE (NEGATIVE) 01/24/19 13:00 Urine RBC 1-3 /hpf (0-3) 01/24/19 13:00 Urine WBC 1-3 /hpf (0-3) 01/24/19 13:00 Ur Epithelial Cells TRACE /lpf (NONE-1+) 01/24/19 13:00 Hyaline Casts 1-5 /lpf (0-1) 01/24/19 13:00 Urine Mucus 2+ /lpf (NONE-1+) H 01/24/19 13:00 Urine Glucose NEGATIVE (NEGATIVE) 01/24/19 13:00 Urine Test NEGATIVE 01/24/19 13:07 Salicylates < 1.0 mg/dL (2.0-20.0) L 01/24/19 16:50 Urine Opiates Screen NEGATIVE (NEGATIVE) 01/24/19 13:00 Acetaminophen < 10 mcg/mL (10-30) L 01/24/19 16:50 Urine Barbiturates NEGATIVE (NEGATIVE) 01/24/19 13:00 Ur Phencyclidine Scrn NEGATIVE (NEGATIVE) 01/24/19 13:00 Ur Amphetamine Screen NEGATIVE (NEGATIVE) 01/24/19 13:00 U Benzodiazepines Scrn NEGATIVE (NEGATIVE) 01/24/19 13:00 Urine Cocaine Screen NEGATIVE (NEGATIVE) 01/24/19 13:00 U Marijuana (THC) Screen NEGATIVE (NEGATIVE) 01/24/19 13:00 Ethyl Alcohol 192 mg/dL (0-10) H 01/24/19 16:50 Assessment & Plan Assessment: Alcohol Dependence - Reports drinking 1 pint to 1 5th of vodka daily for past several weeks - ETOH level 192 on admission - Case management in ED has contacted [facility] which has accepted patient when medically cleared - Will treat alcohol ketoacidosis as below - Will order CIWA protocol as well as Folate, Thiamine, MV - Seizure precautions in place, no hx of DTs Acidosis (Acute) - Bicarb on admission 19, VBG 7.39 Bicarb 13, C02 14 - Elevated B-hydroxybutyrate with +trace Ketones on UA - Likely Alcoholic/Starvation Ketoacidosis - S/p 3L IVF in ED, will continue IVF with D5 1/2 NS overnight - Repeat BMP in the AM Pancreatitis - Reports hx of this, no current abdominal pain - Lipase WNL on admission Hypoglycemia - In setting of starvation/alcoholic ketoacidosis - Will treat with D5 1/2 NS as above - Continue to monitor BG Hyponatremia - Na 133 on admission - In setting of decreased PO intake - Initiating D5 1/2 NS, may decrease further slightly - Repeat Na in the AM FEN: IVF as above, Regular DVT PPx: Lovenox Code: FULL Dispo: Admit to [facility]
[2019-01-24] MEDS: NICOTINE 14 MG/24 HR PATCH TD SCH (20:04)
[2019-01-24] MEDS: LORazepam 2 MG/ML INJ IVP PRN ×3 (20:07→22:50)
[2019-01-24] MEDS: ACETAMINOPHEN 325 MG TAB PO PRN (22:07)
[2019-01-24] MEDS: D5W 1/2 NS 1,000 ML IV SCH (22:50)
[2019-01-25] MEDS: LORazepam 2 MG/ML INJ IVP PRN ×4 (03:26→12:17)
[2019-01-25] MEDS ORDERED: PROTOCOL POTASSIUM 1 DOSE MISC PRN (07:36)
[2019-01-25] MEDS ORDERED: POTASSIUM CL 10 MEQ TAB PO ONE (07:37)
[2019-01-25] MEDS ORDERED: POTASSIUM CL 20 MEQ TAB ONE (07:39)
[2019-01-25] MEDS: NICOTINE 14 MG/24 HR PATCH TD SCH (07:55)
[2019-01-25] MEDS: ENOXAPARIN 40 MG/0.4 ML SYR SC SCH ×2 (07:55→08:04)
--- NOTE | 2019-01-25 08:32 | HOSPPROG ---
Hospitalist Progress Note Assessment/Plan: * Alcoholic Ketoacidosis * alcoholism * high risk of DT's * Kratom abuse * suspected thiamine deficiency * hypoglycemia * protein calorie malnutrition * Continue IV hydration w dextrose * thiamine * [facility] protocol Objective: Vital Signs Temp Pulse Resp BP Pulse Ox 36.6 C 96 21 H 152/90 H 98 01/25/19 07:24 01/25/19 07:24 01/25/19 07:24 01/25/19 07:24 01/25/19 07:24 Laboratory Results 01/25/19 05:50 01/24/19 01/25/19 01/26/19 06:59 06:59 06:59 Intake Total 2710 Balance 2710 ICD10 Worksheet Patient Problems: Problems Problem Status Onset Acidosis Acute Alcoholic ketoacidosis Acute Alcoholism /alcohol abuse Acute Hypoalbuminemia Acute
[2019-01-25] MEDS ORDERED: FAMOTIDINE 20 MG TAB PO SCH (09:00)
[2019-01-25] MEDS ORDERED: THIAMINE HCL 500 MG in NS 100 ML IV SCH (09:00)
--- NOTE | 2019-01-25 09:12 | ASMTLACE ---
CESIA Acuity / Level of Answers: Yes Care: Did the patient have an inpatient admission? Comorbidities - select Answers: Opioid dependence all that apply / Chronic pain # of Emergency department Answers: 3-4 visits in the last 6 months Social determinants Answers: History of substance abuse (ETOH, street drugs, prescription drugs, etc.) Mental health diagnosis (anxiety, depression, pers onality disorders, etc.) Score: 16 Date Signed: 01/25/2019 09:11 AM Electronically Signed By:Lacey Lofton
[2019-01-25] MEDS: D5W 1/2 NS 1,000 ML IV SCH (09:31)
[2019-01-25] MEDS ORDERED: POTASSIUM CL 20 MEQ TAB PO ONE (10:00)
--- NOTE | 2019-01-25 10:29 | PDMN ---
Medical Necessity Medical necessity: Pt meets IP criteria per & MCG M-595 Substance-Related Disorders; est los >2 mn for eval/tx of alcoholic ketoacidosis w/tachycardia, tachypnea, hypoglycemia & high risk of DT's; admit to SDU for close monitoring, CIWA protocol & follow-up labs; hx alcoholism, Kratom abuse, pancreatitis; per H &P & order 01/24/19
[2019-01-25] MEDS: ACETAMINOPHEN 325 MG TAB PO PRN (10:32)
--- NOTE | 2019-01-25 14:13 | PDDCSUM ---
Discharge Summary Discharge Summary: DISCHARGE DIAGNOSES: * Alcoholic ketoacidosis * Acute alcohol intoxication * Alcoholism * Abuse of Kratom, with prior use of IV narcotics * Mild hypoglycemia * Hyponatremia HOSPITAL COURSE SUMMARY: This patient with a long history of alcoholism and previous history of IV narcotics currently using Kratom came in voluntarily to the ER seeking help. She was having some abdominal discomfort nausea vomiting and was found to have acute alcoholic ketoacidosis with a CO2 level of 7 on serum chemistry. There is a significant anion gap. She had some very minimal early signs of withdrawal while she was here but she came in with an alcohol level of 192 last night. She appeared somewhat dehydrated. The patient was treated with aggressive IV hydration and including dextrose. This has resulted in resolution of her metabolic acidosis and she is feeling physically notably better. She is now eating and has no need for nausea medications or pain medications. The she appears stable for discharge from acute hospital medical care. However she is wishing to discontinue alcohol and the Kratom. She is wanting to get into a residential facility so we were able to contact the [facility] and they have accepted her for care there and she will be transferred there from this facility. PENDING TEST RESULTS: None MEDICATION CHANGES: None FOLLOW-UP PLAN: At this time she is being transferred to the [facility] for alcohol detoxification and rehabilitation. Greater than 35 minutes bedside and care coordination time today
--- NOTE | 2019-01-25 14:28 | ASDISCHSUM ---
Discharge Information Plan Status:Substance Abuse Referrals Medically Cleared to Leave:01/25/2019 Discharge Date:01/25/2019 CM D/C Disposition: ADT D/C Disposition:Other Rehab, Not [place] Projected Discharge Date:01/25/2019 Transportation at D/C: Discharge Delay Reason: Follow-Up Date:01/25/2019 Discharge Slot: Final Diagnosis: Placement Information Patient Contact Information Contact Name:INGRIS Relationship:Other Address: Work Phone: [facility] Phone: State/[facility] Code: Email: Financial Information Financial Class:Medicaid Primary Plan Desc:[employer] Primary Plan Number:[id number] Secondary Plan Desc: Secondary Plan Number: Assessment Information [facility] Progress Note CM Note CM Note Notes: See ED report for details regarding patient's presentation to the ED this morning. Chart reviewed, met with patient, and [facility] in [place]. This CM spoke with Sasha at and confirmed that they had a Medicaid detox bed available, however, after gathering labs, and sending requested information, Marycarmen notified CM that they did not have a bed available. This CM spoke with Nahed (supervisor telephone clerks at ) to request improved communication with staff and asked that in the future they would contact if there is a change in their bed situation after we have requested a bed and are in the process of gathering their requested information. Nahed states that she will follow up and discuss this with staff. This CM then contacted Haim at [facility] and have sent referral for a Medicaid detox bed. Patient has been accepted to [facility] as of 1730. Patient's METPC repeated at 1830 and remains with critical low CO2 and patient will be admitted for further evaluation (see ED report for details). This CM contacted kimberly at [facility] , ext 2 and informed that patient will be admitted here overnight. Per Kimberly, CM may contact if/when patient is ready to discharge to detox and check their bed availability at that time CM to follow Date Signed: 01/24/2019 07:07 PM Electronically Signed By:Karen Parada RN LACE LACPedro Acuity / Level of Answers: Yes Care: Did the patient have an inpatient admission? Comorbidities - select Answers: Opioid dependence all that apply / Chronic pain # of Emergency department Answers: 3-4 visits in the last 6 months Social determinants Answers: History of substance abuse (ETOH, street drugs, prescription drugs, etc.) Mental health diagnosis (anxiety, depression, pers onality disorders, etc.) Score: 16 Date Signed: 01/25/2019 09:11 AM Electronically Signed By:Lacey Lofton Case Management Discharge Plan Note Case Management Discharge Discharge Order Complete? Answers: Yes Patient to Obtain Answers: via Family Medications Transportation Arranged Answers: Family/Friends Family Notified Answers: Yes Discharge Comments Notes: Pt's partner has been visiting at bedside. Both pt and partner are in agreement that [place] is the best next step and are in agreement with plan to go there. CM contacted [facility] and confirmed bed availability this am and that they are saving one for pt; CM left message with time of discharge. Spoke with pt's partner and discussed discharge transportation. Pt's partner is in agreement to get her to [facility]; pt in agreement. No other concerns noted at this time. Date Signed: 01/25/2019 02:27 PM Electronically Signed By:ANNELIESE Johansen Intervention Information
[2019-01-25 14:49] VITALS: BP 158/80
[2019-01-28] MEDS ORDERED: THIAMINE HCL 100 MG TAB PO SCH (09:00)
== END 2019-01-25 14:40 | DRG 422 ==
LOC: F2N 22:13
PROVIDERS: ADMIT Internal Medicine; ATTEND Internal Medicine
PROC: HZ2ZZZZ Detoxification Services for Substance Abuse Treatment (ICD-10-PCS; principal; 2019-01-24)
DX: E87.2 Acidosis (principal); T51.0X1A Toxic effect of ethanol, accidental (unintentional), initial encounter; F10.229 Alcohol dependence with intoxication, unspecified; F10.239 Alcohol dependence with withdrawal, unspecified; Y90.6 Blood alcohol level of 120-199 mg/100 ml; F11.10 Opioid abuse, uncomplicated; E87.1 Hypo-osmolality and hyponatremia; E86.0 Dehydration; K08.89 Other specified disorders of teeth and supporting structures; Z87.891 Personal history of nicotine dependence; Z79.1 Long term (current) use of non-steroidal anti-inflammatories (NSAID)
CPT/HCPCS: 80305; 96365; 97116-GP; 97161-GP; 97165-GO; G0480; J1650; J2060; J2405; J3411

== ENCOUNTER 2019-04-26 12:18 | Emergency (ER) | payer MEDICAID | END 2019-04-26 13:14 | disposition left against medical advice (07) ==

== ENCOUNTER 2019-04-26 13:45 | Emergency (ER) | payer MEDICAID | END 2019-04-26 15:23 | disposition left against medical advice (07) ==